=== PATIENT | female | born 1995 | race Caucasian/White ===

== ENCOUNTER 2016-04-28 13:14 | Emergency (ER) | payer BC, OTHER ==
[2016-04-28 13:25] LABS: INFLUENZA A NEG (NEG); INFLUENZA B NEG (NEG)
== END 2016-04-28 14:00 | disposition home or self-care (01) ==
LOC: CFTX 13:14
PROVIDERS: Nurse Practitioner
DX: J02.0 Streptococcal pharyngitis (principal)
CPT/HCPCS: 87804; 87880; 96372; 99283; J0561